=== PATIENT | male | born 1975 | race Caucasian/White ===

== ENCOUNTER 2022-08-28 19:06 | Inpatient (IN) | payer OTHER ==
--- NOTE | 2022-08-28 20:22 | ED ---
General Adult HPI - General Chief complaint: Psychiatric Symptoms Stated complaint: mental health Time Seen by Provider: 08/28/22 19:34 Source: patient, family Mode of arrival: ambulatory Limitations: no limitations - History of Present Illness Initial comments: Dictation was produced using [employer] dictation software. please excuse any grammatical, word or spelling errors. Chief Complaint: 46-year-old male presents for alcohol intoxication and hallucinations. History of Present Illness: Patient is a 46-year-old male presents emergency department for psychiatric evaluation. Patient had multiple alcoholic beverages today. He is here because he is having psychiatric hallucinations. Patient reports that he has monsters in his head. Patient reports that he does not want to live anymore. Denies any homicidal ideation. Patient uncooperative and is a poor historian. Comfortably at the bedside endorses patient's statements. Unable to obtain ROS negative patient's mental status PHYSICAL EXAM: General Impression: Alert and oriented x3, inebriated, uncooperative HEENT: Normocephalic atraumatic, extra-ocular movements intact, pupils equal and reactive to light bilaterally, mucous membranes moist. Cardiovascular: Heart regular rate and rhythm Chest: Able to complete full sentences, no retractions, no tachypnea Abdomen: abdomen soft, non-tender, non-distended, no organomegaly Musculoskeletal: Pulses present and equal in all extremities, no peripheral edema Motor: no focal deficits noted Neurological: CN II-XII grossly intact, no focal motor or sensory deficits noted Skin: Intact with no visualized rashes Psych: Normal affect and mood ED course: 46-year-old male presents emergency department delusional thinking and suicidal ideation. As upon arrival are within acceptable limits. Patient uncooperative. He is placed in soft 4 point restraints. Laboratory evaluation obtained. CBC, metabolic panel is unremarkable. Urine drug screen negative. Serum alcohol is 388. Patient be admitted for medical intoxication, suicidal ideation and psychosis. - Related Data Allergies Allergy/AdvReac Type Severity Reaction Status Date / Time No Known Allergies Allergy Verified 08/28/22 19:28 Review of Systems ROS Statement: Those systems with pertinent positive or pertinent negative responses have been documented in the HPI. ROS Other: All systems not noted in ROS Statement are negative. Past Medical History Past Medical History: Unable to Obtain History of Any Multi-Drug Resistant Organisms: None Reported Past Surgical History: Unable to Obtain, Orthopedic Surgery Past Psychological History: Depression Smoking Status: Never smoker Past Alcohol Use History: Daily, Heavy Past Drug Use History: Cocaine General Exam Limitations: no limitations Course Vital Signs 08/28/22 19:28 Temperature 98.2 F Pulse Rate 113 H Respiratory 18 Rate Blood Pressure 147/106 O2 Sat by Pulse 97 Oximetry Procedures - Restraint - Face to Face Restraint Occurrence 1 Patient's Immediate Situation: Endangers self safety, Endangers others' safety, Endangers staff safety Patient's Reaction to the Intervention: Uncooperative Patient's Medical & Behavioral Condition: Awake, Agitated Need to Continue or Terminate Restraint or Seclusion: Continue Face to Face Eval of Restraint Date: 08/28/22 Face to Face Eval of Restraint Time: 19:46 Medical Decision Making - Lab Data Result diagrams: 08/28/22 21:11 08/28/22 21:11 Lab Results 08/28/22 08/28/22 08/28/22 Range/Units 21:11 21:11 21:11 WBC 5.2 (3.8-10.6) k/uL RBC 4.98 (4.30-5.90) m/uL Hgb 17.8 H (13.0-17.5) gm/dL Hct 49.6 (39.0-53.0) % MCV 99.7 (80.0-100.0) fL MCH 35.8 H (25.0-35.0) pg MCHC 35.9 (31.0-37.0) g/dL RDW 12.6 (11.5-15.5) % Plt Count 277 (150-450) k/uL MPV 7.2 Neutrophils % 65 % Lymphocytes % 26 % Monocytes % 4 % Eosinophils % 1 % Basophils % 1 % Neutrophils # 3.4 (1.3-7.7) k/uL Lymphocytes # 1.4 (1.0-4.8) k/uL Monocytes # 0.2 (0-1.0) k/uL Eosinophils # 0.1 (0-0.7) k/uL Basophils # 0.1 (0-0.2) k/uL Sodium 145 (137-145) mmol/L Potassium 4.4 (3.5-5.1) mmol/L Chloride 105 (98-107) mmol/L Carbon Dioxide 22 (22-30) mmol/L Anion Gap 18 mmol/L BUN 8 L (9-20) mg/dL Creatinine 1.12 (0.66-1.25) mg/dL Est GFR (CKD-EPI)AfAm >90 (>60 ml/min/1.73 sqM) Est GFR (CKD-EPI)NonAf 78 (>60 ml/min/1.73 sqM) Glucose 107 H (74-99) mg/dL Calcium 9.0 (8.4-10.2) mg/dL Urine Opiates Screen Not Detected (NotDetected) Ur Oxycodone Screen Not Detected (NotDetected) Urine Methadone Screen Not Detected (NotDetected) Ur Propoxyphene Screen Not Detected (NotDetected) Ur Barbiturates Screen Not Detected (NotDetected) U Tricyclic Antidepress Not Detected (NotDetected) Ur Phencyclidine Scrn Not Detected (NotDetected) Ur Amphetamines Screen Not Detected (NotDetected) U Methamphetamines Scrn Not Detected (NotDetected) U Benzodiazepines Scrn Not Detected (NotDetected) Urine Cocaine Screen Not Detected (NotDetected) U Marijuana (THC) Screen Not Detected (NotDetected) Serum Alcohol 388 H* mg/dL Disposition Clinical Impression: Alcohol intoxication Disposition: ADMITTED IP TO THIS [facility] Condition: Fair Referrals: None,Stated [Primary Care Provider] - 1-2 days Decision Time: 22:03
[2022-08-28 21:19] LABS: Basophils # (A) 0.1 k/uL (0-0.2); Basophils % (A) 1 %; Eosinophils # (A) 0.1 k/uL (0-0.7); Eosinophils % (A) 1 %; HCT 49.6 % (39.0-53.0); HGB 17.8 gm/dL (13.0-17.5); Lymphocytes # (A) 1.4 k/uL (1.0-4.8); Lymphocytes % (A) 26 %; MCH 35.8 pg (25.0-35.0); MCHC 35.9 g/dL (31.0-37.0); MCV 99.7 fL (80.0-100.0); Mean Platelet Volume 7.2; Monocytes # (A) 0.2 k/uL (0-1.0); Monocytes % (A) 4 %; Neutrophils # (A) 3.4 k/uL (1.3-7.7); Neutrophils % (A) 65 %; Platelet Count 277 k/uL (150-450); RBC 4.98 m/uL (4.30-5.90); RDW 12.6 % (11.5-15.5); WBC 5.2 k/uL (3.8-10.6)
[2022-08-28] MEDS ORDERED: ONDANSETRON 4 MG TAB PO STA (21:25)
[2022-08-28 21:26] LABS: Amphetamine Screen,Urine Not Detected (NotDetected); Barbiturate Screen,Urine Not Detected (NotDetected); Benzodiazepines Screen,Urine Not Detected (NotDetected); Cocaine Screen,Urine Not Detected (NotDetected); Methadone Screen, Urine Not Detected (NotDetected); Opiate Screen,Urine Not Detected (NotDetected); Oxycodone Screen, Urine Not Detected (NotDetected); Phencyclidine Screen,Urine Not Detected (NotDetected); Tricyclic Antidepressant,Urine Not Detected (NotDetected); Urn Cannabinoid Scrn Not Detected (NotDetected)
[2022-08-28 21:31] LABS: African American GFR (CKD) >90 (>60 ml/min/1.73 sqM); Anion Gap 18 mmol/L; Blood Urea Nitrogen 8 mg/dL (9-20); Carbon Dioxide 22 mmol/L (22-30); Chloride 105 mmol/L (98-107); Glucose 107 mg/dL (74-99); Non-African American GFR(CKD) 78 (>60 ml/min/1.73 sqM); Potassium 4.4 mmol/L (3.5-5.1); Sodium 145 mmol/L (137-145)
[2022-08-28 21:43] LABS: Alcohol 388 mg/dL
[2022-08-28] MEDS ORDERED: LORazepam 2 MG/ML INJ IV PRN ×3 (21:59)
[2022-08-28] MEDS ORDERED: THIAMINE 100 MG/ML 2 ML VIAL IM STA (21:59)
[2022-08-28] MEDS ORDERED: NALOXONE 0.4 MG/ML 1 ML VIAL IV PRN (22:00)
[2022-08-28] MEDS: SODIUM CHLORIDE 0.9% 1,000 ML IV SCH (22:49)
[2022-08-28] MEDS ORDERED: LORazepam 1 MG/0.5 ML VIAL IV PRN (23:34)
[2022-08-28] MEDS: LORazepam 1 MG/0.5 ML VIAL IV PRN (23:37)
[2022-08-29] MEDS: LORazepam 1 MG/0.5 ML VIAL IV PRN ×7 (02:28→22:45)
[2022-08-29] MEDS: THIAMINE 100 MG TAB PO SCH (09:24)
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
[2022-08-29] MEDS: HEPARIN SODIUM,PORCINE/PF 5,000 UNIT/0.5 ML SYRINGE SQ SCH ×2 (17:17→20:10)
[2022-08-29] MEDS ORDERED: ONDANSETRON 4 MG/2 ML VIAL IVP PRN (18:06)
[2022-08-29] MEDS ORDERED: CALCIUM CARBONATE 500 MG CHEWABLE PO PRN (20:02)
[2022-08-29] MEDS: SODIUM CHLORIDE 0.9% 1,000 ML IV SCH (20:10)
[2022-08-29] MEDS: PANTOPRAZOLE 40 MG TABLET PO SCH (20:11)
[2022-08-29] MEDS ORDERED: OLANZapine 5 MG TAB PO SCH (21:00)
--- NOTE | 2022-08-30 00:37 | P.HPIM ---
History of Present Illness H&P Date: 08/29/22 Chief Complaint: hallucinations Patient is a 26-year-old male with a known history of severe alcohol abuse, history of cocaine use, seizure disorder, osteoarthritis presents to ER with alcohol intoxication and hallucinations. Patient states that he drinks about a gallon of liquor every day. Patient came to ER saying that he has having hallucinations and reports that he has more stress in his head. And also reported that he does not want to live anymore. Denies any homicidal ideation. Patient was intoxicated on admission. Patient otherwise denied any complaints of chest pain or shortness of breath. No complaints of headache or dizziness., Complaints of nausea. No fever no chills. No cough or sputum production. EKG showed sinus rhythm Laboratory data showed WBC 5.2 hemoglobin 17.8 and platelets 277 and serum alcohol level is 388 Sodium 145 potassium 4.4 chloride 105 bicarb is 22 BUN 18 and creatinine 1.12 and blood sugar is 107 Review of Systems Constitutional: Patient denies any fever or chills . no Generalized weakness. Abdomen: Patient denied any nausea or vomiting or abd. pain Cardiovascular: Patient denies any chest pain or short of breath no palpitations. Respiratory: patient denied any cough . no sputum production. No shortness of breath Neurologic: Patient denied any numbness or tingling headache. Musculoskeletal: Patient denies any complaints of joint swelling or deformity. Skin: Negative Psychiatric: Negative Endocrine: No heat or cold intolerance. No recent weight gain. Genitourinary: No dysuria or hematuria. All other 14 point ROS negative except the above Past Medical History Past Medical History: Osteoarthritis (OA), Seizure Disorder History of Any Multi-Drug Resistant Organisms: None Reported Past Surgical History: Orthopedic Surgery Past Psychological History: Depression Smoking Status: Former smoker Past Alcohol Use History: Daily, Heavy Past Drug Use History: Cocaine Medications and Allergies Home Medications Medication Instructions Recorded Confirmed Type No Known Home Medications 08/28/22 08/28/22 History Allergies Allergy/AdvReac Type Severity Reaction Status Date / Time No Known Allergies Allergy Verified 08/28/22 22:14 Physical Exam Vitals: Vital Signs Temp Pulse Pulse Resp BP BP Pulse Ox 08/29/22 04:00 97.7 F 89 14 129/76 91 L 08/28/22 23:56 98.2 F 111 H 12 124/77 94 L 11/02/22 23:10 146/105 08/28/22 19:28 98.2 F 113 H 18 147/106 97 Intake and Output 08/28/22 08/29/22 08/29/22 22:59 06:59 14:59 Intake Total 0 Balance 0 Intake: Oral 0 Other: Voiding Method Toilet Urinal # Voids 0 1 Weight 108.862 kg PHYSICAL EXAMINATION: Patient is lying in the bed comfortably, no acute distress, awake alert and oriented.. HEENT: Normocephalic. Neck is supple. Pupils reactive. Nostrils clear. Oral cavity is moist. Neck reveals no JVD, carotid bruits, or thyromegaly. CHEST EXAMINATION: Trachea is central. Symmetrical expansion. Lung etienne clear to auscultation and percussion. CARDIAC: Normal S1, S2 with no gallops. No murmurs ABDOMEN: Soft. Bowel sounds present. Nontender. No organomegaly. No abdominal bruits. Extremities: reveal no edema. No clubbing or cyanosis Neurologically awake, alert, oriented x3 with well-coordinated movements. No focal deficits noted Skin: No rash or skin lesions. Psychiatric: Coperative. Nonsuicidal, Musculoskeletal: No joint swelling or deformity. Normal range of motion. Results CBC & Chem 7: 08/28/22 21:11 08/28/22 21:11 Labs: Abnormal Lab Results - Last 24 Hours (Table) 08/28/22 08/28/22 Range/Units 21:11 21:11 Hgb 17.8 H (13.0-17.5) gm/dL MCH 35.8 H (25.0-35.0) pg BUN 8 L (9-20) mg/dL Glucose 107 H (74-99) mg/dL Serum Alcohol 388 H* mg/dL Thrombosis Risk Factor Assmnt - DVT/VTE Prophylaxis DVT/VTE Prophylaxis: Pharmacologic Prophylaxis ordered - Choose All That Apply Any of the Below Risk Factors Present?: Yes Each Factor Represents 1 point: Age 41-60 years, Obesity (BMI >25) Other Risk Factors: No Other congenital or acquired thrombophilia - If yes, enter type in comment: No Thrombosis Risk Factor Assessment Total Risk Factor Score: 2 Thrombosis Risk Factor Assessment Level: Low Risk Assessment and Plan Assessment: Acute alcohol intoxication Nausea Acute psychosis with hallucinations History of cocaine use Osteoarthritis DVT prophylaxis with heparin subcu and GI prophylaxis Patient will be continued on IV hydration with normal saline and continue to monitor for alcohol withdrawal symptoms. Symptomatic management of nausea with Zofran and PPI. Continue with thiamine and multivitamins and psychiatry was consulted for evaluation. Patient was started on Zyprexa. Continue with bedside sitter and follow-up closely. Time with Patient: Greater than 30
[2022-08-30] MEDS: LORazepam 1 MG/0.5 ML VIAL IV PRN ×8 (02:16→23:32)
[2022-08-30] MEDS: PANTOPRAZOLE 40 MG TABLET PO SCH ×2 (06:45→17:06)
[2022-08-30] MEDS: THIAMINE 100 MG TAB PO SCH (08:41)
[2022-08-30] MEDS: HEPARIN SODIUM,PORCINE/PF 5,000 UNIT/0.5 ML SYRINGE SQ SCH ×3 (08:41→23:38)
[2022-08-30 08:51] LABS: Basophils % (A) 1 %; Eosinophils # (A) 0.1 k/uL (0-0.7); Eosinophils % (A) 1 %; HCT 43.1 % (39.0-53.0); HGB 15.2 gm/dL (13.0-17.5); Lymphocytes # (A) 0.8 k/uL (1.0-4.8); Lymphocytes % (A) 17 %; MCH 35.2 pg (25.0-35.0); MCHC 35.4 g/dL (31.0-37.0); MCV 99.4 fL (80.0-100.0); Mean Platelet Volume 7.8; Monocytes # (A) 0.3 k/uL (0-1.0); Monocytes % (A) 5 %; Neutrophils # (A) 3.5 k/uL (1.3-7.7); Neutrophils % (A) 74 %; Platelet Count 215 k/uL (150-450); RBC 4.34 m/uL (4.30-5.90); RDW 12.4 % (11.5-15.5); WBC 4.8 k/uL (3.8-10.6)
[2022-08-30 09:07] LABS: Albumin 3.8 g/dL (3.5-5.0); Calcium 8.8 mg/dL (8.4-10.2); Potassium 3.6 mmol/L (3.5-5.1); Total Bilirubin 2.2 mg/dL (0.2-1.3); Total Protein 6.6 g/dL (6.3-8.2)
[2022-08-30] MEDS: chlordiazePOXIDE 25 MG CAP PO SCH ×3 (09:32→22:20)
--- NOTE | 2022-08-30 14:29 | P.PN ---
Progress Note - Text Progress Note Date: 08/30/22 Interval History: Patient was seen resting in bed and was directable and agreeable to speak with comic writer in his room., The patient reports that he continues to experience some loosening she is however states that they have decreased since yesterday. However, the patient is tearful throughout this interview stating that he is extremely anxious and has a very strong desire to drink. He reports that "the only thing that would probably stop my drinking is being at this time." The patient endorses feelings of hopelessness and helplessness. He reports that he is feeling significant pain physically and mentally. He states that sleep has improved and appetite has improved overall. He is in agreement with further titration of his medications. Mental Status Exam: General Appearance: Patient appears to be stated age is alert, directable, and cooperative. Behavior: Patient is lying down upright in his bed without any agitated behavior. Speech: Patient's speech is fluent and nonpressured. Monotone. Nonspontaneous. Mood/Affect: Mood is in "agony." Affect is dysphoric. Suicidality/Homicidality: Patient endorses passive thoughts of suicide. No homicidal ideation. Perceptions: Patient endorses vague auditory and visual hallucinations. Though content/process: There is no evidence of any delusional thought content and thought process is linear and goal-directed. Strongly fixated on drinking. Memory and concentration: AOX3, grossly intact for the purposes of this session Judgment and insight: Improving mildly Vital Signs Temp 97.6 F 08/30/22 12:00 Pulse 66 08/30/22 12:00 Resp 17 08/30/22 12:00 BP 120/79 08/30/22 12:00 Pulse Ox 97 08/30/22 12:00 FiO2 Intake & Output 08/29/22 08/30/22 08/30/22 18:59 06:59 18:59 Intake Total 506 118 Balance 506 118 Intake: Intake, IV Titration 30 Amount Sodium Chloride 0.9% 1, 30 000 ml @ 20 mls/hr IV . Q24H [facility] Rx#:[id number] Oral 476 118 Other: Voiding Method Toilet Toilet Urinal Urinal # Voids 1 Laboratory Results - Last 24 Hours 08/30/22 08/30/22 08:07 08:07 WBC 4.8 RBC 4.34 Hgb 15.2 Hct 43.1 MCV 99.4 MCH 35.2 H MCHC 35.4 RDW 12.4 Plt Count 215 MPV 7.8 Neutrophils % 74 Lymphocytes % 17 Monocytes % 5 Eosinophils % 1 Basophils % 1 Neutrophils # 3.5 Lymphocytes # 0.8 L Monocytes # 0.3 Eosinophils # 0.1 Basophils # 0.0 Sodium 137 Potassium 3.6 Chloride 102 Carbon Dioxide 23 Anion Gap 12 BUN 10 Creatinine 1.18 Est GFR (CKD-EPI)AfAm 85 Est GFR (CKD-EPI)NonAf 73 Glucose 132 H Calcium 8.8 Total Bilirubin 2.2 H AST 41 ALT 26 Alkaline Phosphatase 79 Total Protein 6.6 Albumin 3.8 Assessment 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 Agree with and Librium. -At this time patient DOES meet criteria for inpatient psychiatric admission. Patient has been petitioned by his girlfriend. -Would recommend the following medication changes/additions: Increase Zyprexa to 10 mg by mouth at bedtime for psychosis and mood -Continue 1:1 sitter for safety -Cannot leave AMA at this time. Patient will need a petition and certification if attempting to leave AMA. -Will continue to follow along -When medically stable, patient is eligible for transfer to a psych bed when available. -EKG ordered.
[2022-08-30] MEDS: OLANZapine 10 MG TAB PO SCH (22:20)
[2022-08-30] MEDS: SODIUM CHLORIDE 0.9% 1,000 ML IV SCH (22:23)
[2022-08-31] MEDS: PANTOPRAZOLE 40 MG TABLET PO SCH ×2 (09:35→14:59)
[2022-08-31] MEDS: HEPARIN SODIUM,PORCINE/PF 5,000 UNIT/0.5 ML SYRINGE SQ SCH ×3 (09:37→22:43)
[2022-08-31] MEDS: THIAMINE 100 MG TAB PO SCH (09:37)
[2022-08-31] MEDS: chlordiazePOXIDE 25 MG CAP PO SCH ×3 (09:37→19:53)
[2022-08-31 18:44] LABS: Basophils % (A) 1 %; Eosinophils # (A) 0.1 k/uL (0-0.7); Eosinophils % (A) 1 %; HCT 42.2 % (39.0-53.0); HGB 15.3 gm/dL (13.0-17.5); Lymphocytes # (A) 0.7 k/uL (1.0-4.8); Lymphocytes % (A) 11 %; MCH 35.9 pg (25.0-35.0); MCHC 36.2 g/dL (31.0-37.0); MCV 99.1 fL (80.0-100.0); Mean Platelet Volume 7.7; Monocytes # (A) 0.3 k/uL (0-1.0); Monocytes % (A) 5 %; Neutrophils # (A) 5.3 k/uL (1.3-7.7); Neutrophils % (A) 82 %; Platelet Count 190 k/uL (150-450); RBC 4.26 m/uL (4.30-5.90); RDW 12.4 % (11.5-15.5); WBC 6.5 k/uL (3.8-10.6)
--- NOTE | 2022-08-31 18:50 | P.PN ---
Subjective Progress Note Date: 08/30/22 Patient is a 26-year-old male with a known history of severe alcohol abuse, history of cocaine use, seizure disorder, osteoarthritis presents to ER with alcohol intoxication and hallucinations. Patient states that he drinks about a gallon of liquor every day. Patient came to ER saying that he has having hallucinations and reports that he has more stress in his head. And also reported that he does not want to live anymore. Denies any homicidal ideation. Patient was intoxicated on admission. Patient otherwise denied any complaints of chest pain or shortness of breath. No complaints of headache or dizziness., Complaints of nausea. No fever no chills. No cough or sputum production. EKG showed sinus rhythm Laboratory data showed WBC 5.2 hemoglobin 17.8 and platelets 277 and serum alcohol level is 388 Sodium 145 potassium 4.4 chloride 105 bicarb is 22 BUN 18 and creatinine 1.12 and blood sugar is 107 08/30/2022 Patient is seen in follow-up this morning currently sleeping although arousable. Patient is continued on CIWA protocol with a suicide sitter at the bedside. Psychiatry is following recommending inpatient psych once stable. Patient will continue with CIWA protocol and have added Librium. Encouraged oral intake and increased activity as tolerated. Patient is afebrile denies chest pain or shortness of breath. Review of systems: Constitutional: No reports of fatigue, fever, or chills Cardiovascular: No reports of chest pain or palpitations Respiratory: No reports of shortness of breath or cough GI: No reports of nausea, vomiting, or diarrhea : No reports of dysuria or retention Neurovascular: No reports of weakness or numbness All medications have been reviewed PHYSICAL EXAMINATION: Patient is lying in the bed comfortably, no acute distress, awake alert and oriented.. HEENT: Normocephalic. Neck is supple. Pupils reactive. Nostrils clear. Oral cavity is moist. Neck reveals no JVD, carotid bruits, or thyromegaly. CHEST EXAMINATION: Trachea is central. Symmetrical expansion. Lung etienne clear to auscultation and percussion. CARDIAC: Normal S1, S2 with no gallops. No murmurs ABDOMEN: Soft. Bowel sounds present. Nontender. No organomegaly. No abdominal bruits. Extremities: reveal no edema. No clubbing or cyanosis Neurologically awake, alert, oriented x3 with well-coordinated movements. No focal deficits noted Skin: No rash or skin lesions. Psychiatric: Cooperative. suicidal ideation Musculoskeletal: No joint swelling or deformity. Normal range of motion. Assessment: Acute alcohol intoxication Nausea Acute psychosis with hallucinations History of cocaine use Suicidal ideation Osteoarthritis DVT prophylaxis with heparin subcu and GI prophylaxis Plan: Patient will be continued on IV hydration with normal saline and continue to monitor for alcohol withdrawal symptoms. Received IV ativan today and have added librium to taper. Patient seen by psych and will be going there once medically stable. Recommend monitoring another 24 hours for improvement in withdrawals. Symptomatic management of nausea with Zofran and PPI. Continue with thiamine and multivitamins Continue with bedside sitter and follow-up closely. The impression and plan of care has been dictated by Kerri Broussard, Nurse Practitioner as directed. Dr. Melly MD I have performed a history and examination and MDM of this patient, discussed the same with the dictator, and agree with the dictator's assessment and plan as written ,documented as a scribe. Based on total visit time, I have performed more than 50% of the visit. Objective - Vital Signs Vital signs: Vital Signs Temp 97.9 F 08/30/22 08:45 Pulse 68 08/30/22 08:45 Resp 16 08/30/22 08:45 BP 157/95 08/30/22 08:45 Pulse Ox 98 08/30/22 08:45 FiO2 Intake & Output 08/29/22 08/30/22 08/30/22 18:59 06:59 18:59 Intake Total 506 118 Balance 506 118 Intake: Intake, IV Titration 30 Amount Sodium Chloride 0.9% 1, 30 000 ml @ 20 mls/hr IV . Q24H JULIO Rx#:[id number] Oral 476 118 Other: Voiding Method Toilet Toilet Urinal Urinal # Voids 1 - Labs CBC & Chem 7: 08/30/22 08:07 08/30/22 08:07 Labs: Abnormal Lab Results - Last 24 Hours (Table) 08/30/22 08/30/22 Range/Units 08:07 08:07 MCH 35.2 H (25.0-35.0) pg Lymphocytes # 0.8 L (1.0-4.8) k/uL Glucose 132 H (74-99) mg/dL Total Bilirubin 2.2 H (0.2-1.3) mg/dL
[2022-08-31] MEDS: OLANZapine 10 MG TAB PO SCH (19:53)
[2022-08-31] MEDS: SODIUM CHLORIDE 0.9% 1,000 ML IV SCH (20:00)
[2022-08-31 20:04] LABS: African American GFR (CKD) >90 (>60 ml/min/1.73 sqM); Anion Gap 11 mmol/L; Blood Urea Nitrogen 8 mg/dL (9-20); Calcium 8.4 mg/dL (8.4-10.2); Carbon Dioxide 23 mmol/L (22-30); Chloride 101 mmol/L (98-107); Glucose 109 mg/dL (74-99); Non-African American GFR(CKD) >90 (>60 ml/min/1.73 sqM); Potassium 3.6 mmol/L (3.5-5.1); Sodium 135 mmol/L (137-145)
[2022-08-31] MEDS ORDERED: LORazepam 1 MG TAB PO PRN (23:16)
[2022-08-31] MEDS: LORazepam 1 MG TAB PO PRN (23:38)
[2022-09-01] MEDS: LORazepam 1 MG TAB PO PRN (01:34)
[2022-09-01] MEDS: THIAMINE 100 MG TAB PO SCH (08:55)
[2022-09-01] MEDS: PANTOPRAZOLE 40 MG TABLET PO SCH ×2 (08:55→16:16)
[2022-09-01] MEDS: chlordiazePOXIDE 25 MG CAP PO SCH ×3 (08:55→21:27)
[2022-09-01] MEDS: HEPARIN SODIUM,PORCINE/PF 5,000 UNIT/0.5 ML SYRINGE SQ SCH ×2 (08:55→16:16)
--- NOTE | 2022-09-01 11:51 | P.PN ---
Subjective Progress Note Date: 08/31/22 Patient is a 26-year-old male with a known history of severe alcohol abuse, history of cocaine use, seizure disorder, osteoarthritis presents to ER with alcohol intoxication and hallucinations. Patient states that he drinks about a gallon of liquor every day. Patient came to ER saying that he has having hallucinations and reports that he has more stress in his head. And also reported that he does not want to live anymore. Denies any homicidal ideation. Patient was intoxicated on admission. Patient otherwise denied any complaints of chest pain or shortness of breath. No complaints of headache or dizziness., Complaints of nausea. No fever no chills. No cough or sputum production. EKG showed sinus rhythm Laboratory data showed WBC 5.2 hemoglobin 17.8 and platelets 277 and serum alcohol level is 388 Sodium 145 potassium 4.4 chloride 105 bicarb is 22 BUN 18 and creatinine 1.12 and blood sugar is 107 08/30/2022 Patient is seen in follow-up this morning currently sleeping although arousable. Patient is continued on CIWA protocol with a suicide sitter at the bedside. Psychiatry is following recommending inpatient psych once stable. Patient will continue with CIWA protocol and have added Librium. Encouraged oral intake and increased activity as tolerated. Patient is afebrile denies chest pain or shortness of breath. 08/31/2022 Patient is currently resting in bed. Awake alert and oriented 3. Continue down alcohol withdrawal protocol. Symptomatically improving. Tolerating oral diet. Patient was started on Zyprexa dose increased to 10 mg at bedtime as per psychiatric recommendations. Anticipate discharged to inpatient psychiatric unit in the next 24 hours. Review of systems: Constitutional: No reports of fatigue, fever, or chills Cardiovascular: No reports of chest pain or palpitations Respiratory: No reports of shortness of breath or cough GI: No reports of nausea, vomiting, or diarrhea : No reports of dysuria or retention Neurovascular: No reports of weakness or numbness All medications have been reviewed PHYSICAL EXAMINATION: Patient is lying in the bed comfortably, no acute distress, awake alert and oriented.. HEENT: Normocephalic. Neck is supple. Pupils reactive. Nostrils clear. Oral cavity is moist. Neck reveals no JVD, carotid bruits, or thyromegaly. CHEST EXAMINATION: Trachea is central. Symmetrical expansion. Lung etienne clear to auscultation and percussion. CARDIAC: Normal S1, S2 with no gallops. No murmurs ABDOMEN: Soft. Bowel sounds present. Nontender. No organomegaly. No abdominal bruits. Extremities: reveal no edema. No clubbing or cyanosis Neurologically awake, alert, oriented x3 with well-coordinated movements. No focal deficits noted Skin: No rash or skin lesions. Psychiatric: Cooperative. suicidal ideation Musculoskeletal: No joint swelling or deformity. Normal range of motion. Assessment: Acute alcohol intoxication Nausea Acute psychosis with hallucinations History of cocaine use Suicidal ideation Osteoarthritis DVT prophylaxis with heparin subcu and GI prophylaxis Plan: Patient will be continued on IV hydration with normal saline and continue to monitor for alcohol withdrawal symptoms. Received IV ativan today and have added librium to taper. Patient seen by psych and will be going there once medically stable. Recommend monitoring another 24 hours for improvement in withdrawals. Symptomatic management of nausea with Zofran and PPI. Continue with thiamine and multivitamins Continue with bedside sitter and follow-up closely. Objective - Vital Signs Vital signs: Vital Signs Temp 98 F 08/31/22 16:00 Pulse 80 08/31/22 16:00 Resp 17 08/31/22 16:00 BP 127/80 08/31/22 16:00 Pulse Ox 97 08/31/22 16:00 FiO2 Intake & Output 08/31/22 08/31/22 09/01/22 06:59 18:59 05:59 Intake Total 358 120 Balance 358 120 Intake: Oral 358 120 Other: Voiding Method Toilet Toilet Urinal Urinal # Voids 1 2 - Labs CBC & Chem 7: 08/31/22 08:24 08/31/22 08:24 Labs: Abnormal Lab Results - Last 24 Hours (Table) 08/31/22 Range/Units 08:24 RBC 4.26 L (4.30-5.90) m/uL MCH 35.9 H (25.0-35.0) pg Lymphocytes # 0.7 L (1.0-4.8) k/uL
[2022-09-01] MEDS: SODIUM CHLORIDE 0.9% 1,000 ML IV SCH (21:28)
[2022-09-01] MEDS: OLANZapine 10 MG TAB PO SCH (21:28)
[2022-09-02] MEDS: LORazepam 1 MG TAB PO PRN (00:13)
[2022-09-02] MEDS: HEPARIN SODIUM,PORCINE/PF 5,000 UNIT/0.5 ML SYRINGE SQ SCH ×3 (00:13→15:36)
[2022-09-02] MEDS: PANTOPRAZOLE 40 MG TABLET PO SCH ×2 (06:38→16:49)
[2022-09-02] MEDS: THIAMINE 100 MG TAB PO SCH (09:05)
[2022-09-02] MEDS: chlordiazePOXIDE 25 MG CAP PO SCH ×2 (09:05→15:36)
--- NOTE | 2022-09-02 10:56 | P.DS ---
Providers Date of admission: 08/29/22 14:31 Expected date of discharge: 09/02/22 Attending physician: Gustavo Pierce Consults: 08/28/22 21:59 Consult Physician Routine Consulting Provider: Yandel Urban Consult Reason/Comments: psychosis Do you want consulting provider notified?: Yes Primary care physician: Stated None Hospital Course: Final diagnosis Acute alcohol intoxication Nausea Acute psychosis with hallucinations History of cocaine use Suicidal ideation Osteoarthritis DVT prophylaxis GI prophylaxis Full code Discharge disposition Patient is being transferred in a stable condition with guarded prognosis [facility] Patient will follow-up with PCP as well as [facility] in the outpatient setting upon discharge. P atient is to continue with Librium taper. Total time taken is greater than 35 minutes. Hospital course This is a 46-year-old male who was recently admitted acute alcohol intoxication along with suicidal ideation was petitioned. Patient was being monitored and maintained on CIWA protocol and followed by psychiatry recommending inpatient psychiatric unit for further evaluation once medically stable. Patient was maintained on CIWA protocol along with Librium taper being started. Patient's symptoms are improving and medically stable and cleared for transfer to [facility] for further psychiatric evaluation. Patient will need primary care provider establishment on discharge. Currently no reports of chest pain, shortness of breath, or palpitations. Patient is afebrile. No reports of nausea or vomiting and patient is tolerating diet. Patient will be going to [address] [place] [address] psychiatric unit today. Physical exam: Gen: This is a 46-year-old male awake, alert and oriented 3, well-developed, well-nourished, obese HEENT: Head is atraumatic, normocephalic. Pupils equal, round. Sclerae is anicteric. NECK: Supple. No JVD. No lymphadenopathy. No thyromegaly. LUNGS: Clear to auscultation. No wheezes or rhonchi. No intercostal retractions. HEART: Regular rate and rhythm. No murmur. ABDOMEN: Soft. Bowel sounds are present. No masses. No tenderness. EXTREMITIES: No pedal edema. No calf tenderness. NEUROLOGICAL: Patient is awake, alert and oriented x3. Cranial nerves 2 through 12 are grossly intact. Please refer to medication reconciliation sheet for a list of medications. The impression and plan of care has been dictated by Kerri Broussard, Nurse Practitioner as directed. Dr. Melly MD I have performed a history and examination and MDM of this patient, discussed the same with the dictator, and agree with the dictator's assessment and plan as written ,documented as a scribe. Based on total visit time, I have performed more than 50% of the visit. Patient Condition at Discharge: Fair Plan - Discharge Summary New Discharge Prescriptions: New chlordiazePOXIDE HCl [Librium] 25 mg PO TID cap Thiamine [Vitamin B-1] 100 mg PO DAILY tab OLANZapine [ZyPREXA] 10 mg PO HS tab LORazepam [Ativan] 1 mg PO TID PRN #3 tab PRN Reason: Anxiety Discharge Medication List LORazepam [Ativan] 1 mg PO TID PRN #3 tab 09/02/22 [Rx] OLANZapine [ZyPREXA] 10 mg PO HS tab 09/02/22 [Rx] Thiamine [Vitamin B-1] 100 mg PO DAILY tab 09/02/22 [Rx] chlordiazePOXIDE HCl [Librium] 25 mg PO TID cap 09/02/22 [Rx] Follow up Appointment(s)/Referral(s): None,Stated [Primary Care Provider] - 1-2 days Activity/Diet/Wound Care/Special Instructions: Patient is medically stable and clear from medicine to be transferred to inpatient psychiatric unit [facility] for further evaluation Discharge/Stand Alone Forms: AA Meetings [facility], Community Resources, Outpatient Counseling, Inp Substance Abuse Facilities, Personal Mold [employer]er Discharge Disposition: TRANSFER TO PSYCH HOSP/UNIT
[2022-09-02 11:48] VITALS: RESP 16
[2022-09-02 16:03] VITALS: BP 130/91; PULSE 75; TEMP 98.1
== END 2022-09-02 19:51 | disposition still patient (30) | DRG 897 ==
LOC: EC 19:06 → 3SCARD 22:00 → OBSVTOIN 08-29 14:31
PROVIDERS: ADMIT Hospitalist; ATTEND Hospitalist
PROC: HZ2ZZZZ Detoxification Services for Substance Abuse Treatment (ICD-10-PCS; principal; 2022-08-29)
DX: F10.229 Alcohol dependence with intoxication, unspecified (principal); R45.851 Suicidal ideations; F23 Brief psychotic disorder; F10.251 Alcohol dependence with alcohol-induced psychotic disorder with hallucinations; F10.232 Alcohol dependence with withdrawal with perceptual disturbance; G40.909 Epilepsy, unspecified, not intractable, without status epilepticus; F14.91 Cocaine use, unspecified, in remission; Y90.8 Blood alcohol level of 240 mg/100 ml or more; M19.90 Unspecified osteoarthritis, unspecified site; Z87.891 Personal history of nicotine dependence; Z78.1 Physical restraint status; Z56.0 Unemployment, unspecified; Z59.00 Homelessness unspecified; Z28.310 Unvaccinated for COVID-19
CPT/HCPCS: 36415; 80048; 80053; 80306; 80320; 85025; 87635; 96372; 96374; 99285

== ENCOUNTER 2022-09-02 19:01 | Inpatient (IN) | payer MEDICAID ==
[2022-09-02] MEDS ORDERED: MAG HYDROX/AL HYDROX/SIMETH 30 ML CUP PO PRN (19:36)
[2022-09-02] MEDS ORDERED: ACETAMINOPHEN TAB 325 MG TAB PO PRN (19:36)
[2022-09-02] MEDS ORDERED: MAGNESIUM HYDROXIDE 2,400 MG/10 ML CUP PO PRN (19:36)
[2022-09-02] MEDS ORDERED: OLANZapine 10 MG TAB PO SCH (21:00)
[2022-09-02] MEDS: chlordiazePOXIDE 25 MG CAP PO SCH (21:14)
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
[2022-09-03] MEDS: NICOTINE 21MG/24HR PATCH TRANSDERM SCH (08:59)
[2022-09-03] MEDS: chlordiazePOXIDE 25 MG CAP PO SCH ×3 (08:59→20:53)
[2022-09-03] MEDS: THIAMINE 100 MG TAB PO SCH (08:59)
--- NOTE | 2022-09-03 14:35 | P.MDCNMH ---
History of Present Illness H&P Date: 09/03/22 This is a 46-year-old male who was recently admitted on the medical unit for alcohol intoxication along with suicidal ideation and was petitioned by his girlfriend. Patient had an alcohol level of 388 and was maintained on CIWA protocol. Patient continued with weaning of Ativan and also started on Librium taper doing significantly better. Patient is now continued on 25 mg 3 times a day and to continue weaning over the next 2 days. Patient on exam denies any withdrawal symptoms at this time and reports he is agreeable to go to group meetings and work with a psychiatrist. Patient is working on discharge planning currently he reports. Patient does not currently have a primary care provider and will need one to establish and this was discussed during the exam along with following with [facility]. Case management/social work is working with the patient in the psych unit as part of discharge planning. Patient has a past medical history of osteoarthritis and seizure disorder along with depression. Patient reports to being a former smoker and did use cocaine in the past and admits to drinking daily heavily. Patient reports he has been in alcohol rehab previously. She denies any chest pain or shortness of breath and reports to tolerating diet with no reports of nausea or vomiting noted. Most recent labs on the medical unit were reviewed within normal limits and follow-up labs including a TSH and lipid panel have been ordered for this morning. Review Of Systems: Constitutional: No fever, no chills, no night sweats. No weight change. No weakness, fatigue or lethargy. No daytime sleepiness. EENT: No headache. No blurred vision or double vision, no loss of vision. No loss of Hearing, no ringing in the ears, no dizziness. No nasal drainage or congestion. No epistaxis. No sore throat. Lungs: No shortness of breath, cough, no sputum production. No wheezing. Cardiovascular: No chest pain, no lower extremity edema. No palpitations. No paroxysmal nocturnal dyspnea. No orthopnea. No lightheadedness or dizziness. No syncopal episodes. Abdominal: No abdominal pain. No nausea, vomiting. No diarrhea. No constipation. No bloody or tarry stools.. No loss of appetite. Genitourinary: No dysuria, increased frequency, urgency. No urinary retention. Musculoskeletal: No myalgias. No muscle weakness, no gait dysfunction, no frequent falls. No back pain. No neck pain. Integumentary: No wounds, no lesions. No rash or pruritus. No unusual bruising. No change in hair or nails. Neurologic: No aphasia. No facial droop. No change in mentation. No head injury. No headache. No paralysis. No paresthesia. Psychiatric: Reports depression. reports anxiety. No mood swings. Endocrine: No abnormal blood sugars. No weight change. No excessive sweating or thirst. No cold intolerance. PHYSICAL EXAMINATION: GENERAL: The patient is alert and oriented x4, Well developed, well nourished. Obese. HEENT: Pupils are round and equally reacting to light. EOMI. no scleral icterus. No conjunctival pallor. Normocephalic, atraumatic. No pharyngeal erythema. No t hyromegaly. CARDIOVASCULAR: S1 and S2 muffled PULMONARY: diminished breath sounds bilaterally with no wheezing or rhonchi noted. ABDOMEN: soft. Nontender on exam. obese. non-distended, normoactive bowel sounds. No palpable organomegaly. MUSCULOSKELETAL: No joint swelling or deformity. EXTREMITIES: No cyanosis, clubbing, or pedal edema. NEUROLOGICAL: Gross neurological examination did not reveal any focal deficits. SKIN: No rashes. Assessment: Recent acute alcohol intoxication with acute alcohol withdrawal, resolved Continued ongoing alcohol abuse Past history of cocaine abuse Former smoker Obesity with body mass index of 30.3 Full code Plan: Recommend to continue with current medications and management. She was started on Librium taper and now transitioned down to 25 mg 3 times a day to continue for another day and then recommend titrating the dose down to 15 mg twice a day, for 2 days, then 25 mg daily for 2 days. Recommend monitoring for any signs of withdrawal. On exam patient was not actively having any withdrawal symptoms with a steady gait and reports the eating well denies any nausea or vomiting. Patient is agreeable to work with psychiatry along with case management/social work about discharge planning and also is agreeable to attend group therapy. Highly encouraged group therapy and compliance with medications. Labs from previous medical admission were reviewed and within normal limits and a TSH along with hemoglobin A1c and lipid panel are ordered and pending at this time. Recommend continue with Ativan by mouth as needed and other psychiatric medications. Patient will need to establish with a primary care provider on discharge along with continuing to follow with de mental health and psychiatry in the outpatient setting. As was discussed with the patient on exam today. The impression and plan of care has been dictated by Kerri Broussard, nurse practitioner as directed. Dr. Melly BALDERAS I have performed a history and examination and MDM of this patient, discussed the same with the dictator, and agree with the dictator's assessment and plan as written ,documented as a scribe. Based on total visit time, I have performed more than 50% of the visit. Any additional findings or plans will be noted. Past Medical History Past Medical History: Osteoarthritis (OA), Seizure Disorder History of Any Multi-Drug Resistant Organisms: None Reported Past Surgical History: Orthopedic Surgery Past Psychological History: Depression Smoking Status: Former smoker Past Alcohol Use History: Daily, Heavy Past Drug Use History: Cocaine Medications and Allergies Home Medications Medication Instructions Recorded Confirmed Type LORazepam [Ativan] 1 mg PO TID PRN #3 tab 09/02/22 09/02/22 Rx OLANZapine [ZyPREXA] 10 mg PO HS tab 09/02/22 09/02/22 Rx Thiamine [Vitamin B-1] 100 mg PO DAILY tab 09/02/22 09/02/22 Rx chlordiazePOXIDE HCl [Librium] 25 mg PO TID cap 09/02/22 09/02/22 Rx Allergies Allergy/AdvReac Type Severity Reaction Status Date / Time No Known Allergies Allergy Verified 08/28/22 22:14 Physical Exam Vitals: Vital Signs Temp Pulse Resp BP Pulse Ox 09/03/22 07:18 97.6 F 66 16 114/60 09/02/22 20:18 97.5 F L 87 18 155/96 97 Intake and Output 09/02/22 09/03/22 09/03/22 22:59 06:59 14:59 Other: Weight 93 kg Cranial Nerve Examination - Cranial Nerves Cranial Nerve I- Olfactory: Intact Cranial Nerve II- Optic: Intact Cranial Nerve III- Oculomotor: Intact Cranial Nerve IV- Trochlear: Intact Cranial Nerve V- Trigeminal: Intact Cranial Nerve - Abducens: Intact Cranial Nerve VII- Facial: Intact Cranial Nerve VIII- Auditory: Intact Cranial Nerve IX- Glossopharyngeal: Intact Cranial Nerve X- Vagus: Intact Cranial Nerve XI- Accessory: Intact Cranial Nerve XII- Hypoglossal: Intact Assessment and Plan Time with Patient: Less than 30
[2022-09-03] MEDS: LORazepam 1 MG TAB PO PRN (19:17)
[2022-09-04] MEDS: LORazepam 1 MG TAB PO PRN ×2 (02:05→09:06)
[2022-09-04 07:06] VITALS: BP 149/105; PULSE 74; RESP 14; TEMP 97
[2022-09-04] MEDS: chlordiazePOXIDE 25 MG CAP PO SCH (09:06)
[2022-09-04] MEDS: THIAMINE 100 MG TAB PO SCH (09:06)
[2022-09-04] MEDS: NICOTINE 21MG/24HR PATCH TRANSDERM SCH (09:12)
--- NOTE | 2022-09-04 11:02 | P.DS ---
Providers Date of admission: 09/02/22 19:55 Expected date of discharge: 09/04/22 Attending physician: Sam Hwang MD Consults: 09/02/22 19:36 Consult Physician Routine Consulting Provider: Farhan Arora Consult Reason/Comments: H and P Do you want consulting provider notified?: Yes Primary care physician: Stated None - Discharge Diagnosis(es) (1) Alcohol dependence Current Visit: Yes Status: Acute Priority: Medium (2) Alcohol intoxication Current Visit: No Status: Acute Priority: High Patient Condition at Discharge: Good Plan - Discharge Summary Discharge Rx Participant: Yes New Discharge Prescriptions: New Mag Hydrox/Al Hydrox/Simeth [Maalox] 30 ml PO Q4HR PRN ml PRN Reason: GI Upset Acetaminophen Tab [Tylenol] 650 mg PO Q4HR PRN tab PRN Reason: Pain/Discomfort Discontinued chlordiazePOXIDE HCl [Librium] 25 mg PO TID cap Thiamine [Vitamin B-1] 100 mg PO DAILY tab OLANZapine [ZyPREXA] 10 mg PO HS tab LORazepam [Ativan] 1 mg PO TID PRN #3 tab PRN Reason: Anxiety Discharge Medication List Acetaminophen Tab [Tylenol] 650 mg PO Q4HR PRN tab 09/04/22 [Rx] Mag Hydrox/Al Hydrox/Simeth [Maalox] 30 ml PO Q4HR PRN ml 09/04/22 [Rx] Activity/Diet/Wound Care/Special Instructions: Avoid the use of street drugs and alcohol. Take all prescriptions as prescribed. When you are in need of refills on your medications, please contact your medical provider and/or outpatient psychiatrist to have this done. Please go to scheduled outpatient appointment for aftercare treatment. If symptoms return or become worse, call the crisis line at and/or go to the nearest emergency room for evaluation.
--- NOTE | 2022-09-04 15:19 | P.DS ---
Providers Date of admission: 09/02/22 19:55 Expected date of discharge: 09/04/22 Attending physician: Sam Hwang MD Consults: 09/02/22 19:36 Consult Physician Routine Consulting Provider: Farhan Arora Consult Reason/Comments: H and P Do you want consulting provider notified?: Yes Primary care physician: Stated None - Discharge Diagnosis(es) (1) Mood disorder Status: Acute Priority: High (2) Alcohol dependence Status: Acute Priority: Medium (3) Alcohol intoxication Status: Acute Priority: High Patient Condition at Discharge: Good Plan - Discharge Summary Discharge Rx Participant: Yes New Discharge Prescriptions: New Mag Hydrox/Al Hydrox/Simeth [Maalox] 30 ml PO Q4HR PRN ml PRN Reason: GI Upset Acetaminophen Tab [Tylenol] 650 mg PO Q4HR PRN tab PRN Reason: Pain/Discomfort Discontinued chlordiazePOXIDE HCl [Librium] 25 mg PO TID cap Thiamine [Vitamin B-1] 100 mg PO DAILY tab OLANZapine [ZyPREXA] 10 mg PO HS tab LORazepam [Ativan] 1 mg PO TID PRN #3 tab PRN Reason: Anxiety Discharge Medication List Acetaminophen Tab [Tylenol] 650 mg PO Q4HR PRN tab 09/04/22 [Rx] Mag Hydrox/Al Hydrox/Simeth [Maalox] 30 ml PO Q4HR PRN ml 09/04/22 [Rx] Follow up Appointment(s)/Referral(s): [facility] [Outside] - 09/10/22 1:00 pm (with [place] [phone]) [facility] Patient Instructions/Handouts: Abuse of Alcohol (DC) Activity/Diet/Wound Care/Special Instructions: Avoid the use of street drugs and alcohol. Take all prescriptions as prescribed. When you are in need of refills on your medications, please contact your medical provider and/or outpatient psychiatrist to have this done. Please go to scheduled outpatient appointment for aftercare treatment. If symptoms return or become worse, call the crisis line at and/or go to the nearest emergency room for evaluation.
[2022-09-04 22:12] LABS: Chol/HDL Ratio 3.36 Ratio; LDL Cholesterol,Calculated 119.3 mg/dL (0.0-131.0)
== END 2022-09-04 13:44 | disposition home or self-care (01) | DRG 885 ==
LOC: 3MHU 19:55
PROVIDERS: ADMIT Psychiatry & Neurology Psychiatry; ATTEND Psychiatry & Neurology Psychiatry
DX: F39 Unspecified mood [affective] disorder (principal); R45.851 Suicidal ideations; F10.20 Alcohol dependence, uncomplicated; F32.A Depression, unspecified; E66.9 Obesity, unspecified; Z68.30 Body mass index [BMI] 30.0-30.9, adult; M19.90 Unspecified osteoarthritis, unspecified site; G40.909 Epilepsy, unspecified, not intractable, without status epilepticus; Z71.41 Alcohol abuse counseling and surveillance of alcoholic; Z87.891 Personal history of nicotine dependence
CPT/HCPCS: 80061; 83036; 84443

== ENCOUNTER 2024-06-15 09:45 | Day surgery (SDC) | payer OTHER ==
[2024-06-15] MEDS ORDERED: LACTATED RINGERS 1,000 ML BAG ONE (11:20)
[2024-06-15] MEDS ORDERED: PROPOFOL 10 MG/ML 20 ML VIAL IV ONE (11:37)
[2024-06-15] MEDS ORDERED: ONDANSETRON 4 MG/2 ML VIAL ONE ×2 (12:00)
--- NOTE | 2024-06-18 15:56 | OP ---
OPERATIVE REPORT DATE OF SERVICE : 06/15/2024 BRIEF HISTORY: Patient is a 48-year-old pleasant white male scheduled for an elective upper endoscopy for evaluation of longstanding history of GERD. Lately, he has been having intermittent episodes of nausea, vomiting. He is presently on omeprazole 20 mg twice daily and still remains symptomatic. PROCEDURE PERFORMED: EGD with biopsy. PREOPERATIVE DIAGNOSIS: Longstanding history of gastroesophageal reflux disease and intermittent episodes of nausea, vomiting. ANESTHESIA: IV sedation per Anesthesia. DESCRIPTION OF PROCEDURE: After informed consent was obtained from the patient, he was brought into the endoscopy unit. IV conscious sedation was administered by Anesthesia and continuous monitoring initially. The Olympus CF-180 video endoscope was inserted in the mouth, esophagus intubated without any difficulty, and was gradually advanced into the stomach and duodenum and carefully examined. Bulb and the second part of the duodenum appeared normal. The scope at this time was withdrawn to the stomach, adequately insufflated with air, and upon careful examination mucosa of antrum had patchy areas of erythema consistent with gastritis and biopsies for H pylori were done. The body and stomach appeared normal and on retroflexion, cardia and fundus appeared normal. Scope was then withdrawn to the esophagus. The GE junction was located at 41 cm from the incisors, it appeared regular with no erythema, erosions, or ulcerations. The entire length of the esophagus appeared normal. Biopsies were done from the distal esophagus. The patient tolerated the procedure well. IMPRESSION: 1. Mild antral gastritis. 2. Normal-appearing esophagus with no evidence of esophagitis or Hernandez esophagus. RECOMMENDATIONS: Findings of this examination were discussed with the patient as well as the family. He was advised to follow up with the biopsy results. In the meantime, advised to continue on omeprazole 20 mg twice daily and follow anti-reflux measures. This concluded the procedure. MMODL / IJN: [id number] /
== END 2024-06-15 12:35 ==
LOC: ORWHC2ENDO 09:45
PROVIDERS: ATTEND Internal Medicine Gastroenterology
DX: K29.70 Gastritis, unspecified, without bleeding (principal); K31.9 Disease of stomach and duodenum, unspecified; K21.9 Gastro-esophageal reflux disease without esophagitis; Z87.891 Personal history of nicotine dependence
CPT/HCPCS: 43239; 88305